=== PATIENT | male | born 1990 | race Caucasian/White ===

== ENCOUNTER 2021-05-06 09:16 | Emergency (ER) | payer OTHER ==
[~2021-05-06] VITALS: Ht 193 cm; Wt 98.4 kg
[~2021-05-06 09:16] MED LIST: AMOXICILLIN500 M1 PO; ANTIPYRINE-BENZ10 ML OT; NOHOMEMEDICATIONS
[2021-05-06] MEDS ORDERED: KEPPRA XR500 MG PO (09:32)
[2021-05-06 09:45] VITALS: BP 126/86
== END 2021-05-06 09:58 | disposition home or self-care (01) ==
LOC: M.ERS 09:16
DX: R51.9 Headache, unspecified (principal); Z79.899 Other long term (current) drug therapy